=== PATIENT | female | born 2000 | race African-American/Black ===

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

== ENCOUNTER 2018-02-01 01:31 | Emergency (ER) | payer OTHER ==
--- NOTE | 2018-02-01 03:55 | PD ---
HPI Chief Complaint decreased FM, vaginal itching/burning Travel History International Travel<30 Days: No Contact w/Intl Traveler<30Days: No Known Affected Area: No History of Present Illness HPI 17-year-old 001, IUP at 31.3 care complicated by teenage The patient presents complaining of decreased movement over the past several days. She reports the baby is moving but she thinks not quite as much as prior. She also reports vaginal irritation and burning. She reports burning with urination. She denies any leaking of fluid or vaginal bleeding. She reports normal movement after arriving to the OB ED. She denies any painful contractions or cramping. She has no other obstetrical complaints at this time. Weeks Gestation: 31 Para: 1 : 2 History Past Medical History Medical History: Denies Significant Hx Obstetric History Obstetric History 001 1 Past Surgical History Surgical History: No Previous Surgery Family History Family History: Negative Social History Alcohol Use: No Tobacco Use: No Substance Abuse: No Allergies-Medications (Allergen,Severity, Reaction): Coded Allergies: shellfish derived (Verified Allergy, Severe, HIVES, 02/01/18) Home Meds Active Scripts Ibuprofen (Ibuprofen) 800 Mg Tab, 800 MG PO Q8H Y for PAIN SCALE 1 TO 10, #30 TAB 0 Refills Prov:Nataly Sterling 05/22/17 Methocarbamol (Robaxin) 500 Mg Tab, 500 MG PO QID Y for MUSCLE SPASM, #20 TAB 0 Refills Prov:Nataly Sterling 05/22/17 Review of Systems Except as stated in HPI: all other systems reviewed are Neg Physical Exam Narrative GENERAL: Well-nourished, well-developed patient. SKIN: Warm and dry. HEAD: Normocephalic and atraumatic. EYES: No scleral icterus. No injection or drainage. ENT: No nasal drainage noted. Mucous membranes pink. Airway patent. NECK: Supple, trachea midline. No JVD. CARDIOVASCULAR: Regular rate and rhythm without murmurs, gallops, or rubs. RESPIRATORY: deferred BREASTS: Bilateral exam showed no masses , no retractions, no nipple discharge. ABDOMEN/GI: Abdomen soft, non-tender, bowel sounds present, no rebound, no guarding Gravid GENITOURINARY: External Genitalia: intact and normal in appearance. Normal BUS. No cervical or vaginal masses noted. fibronectin obtained which was negative. Physiologic discharge noted. SVE closed/thick/high/posterior FHT's: heart tones are in the 120s with moderate long-term variability, good accelerations, no decelerations noted. Patient has a reactive NST and a category 1 heart rate tracing. EXTREMITIES: No cyanosis or edema. BACK: Nontender without obvious deformity. NEUROLOGICAL/musculoskeletal: Awake and alert. Motor and sensory grossly within normal limits. Grossly normal muscle strength in all muscle groups. Normal speech. Grossly normal range of motion, gait. Psychiatric: Grossly normal memory and affect MDM Plan Assessment/plan: 1. IUP at 31 weeks 2. Decreased movement: The patient reports normal movement after arriving. She has a reactive NST and category 1 heart rate tracing. In addition a biophysical profile was performed which is 8/8. 3. Vaginal irritation: A wet prep was obtained which showed positive yeast. The patient was counseled to use Monistat externally [id number] and given a prescription for Diflucan 150 mg #2 to take 1 now and 1 in 2 weeks 4. well-being: Reassuring testing with reactive NST and BPP 8/ 8. kick counts daily 5. Teenage 6. Lapse in care: Advised patient to see care for women as soon as possible 7. Follow-up with primary OB in the next 2-3 days Diagnosis Diagnosis: Primary Impression: 31 weeks gestation of Additional Impression: Decreased movement affecting management of in third trimester Disposition: 01 DISCHARGE HOME Condition: Karen Baez MD Feb 01, 2018 03:55
--- NOTE | 2018-02-01 04:08 | PD ---
History of Present Illness History of Present Illness NST/BPP report Indications: IUP at 31 weeks, decreased movement heart tones are in the 120s with moderate long-term variability, good accelerations, no decelerations noted. Bedside ultrasound was performed which showed numerous gross body movements, numerous episodes of flexion-extension, breathing motions for greater than 30 seconds, and a normal SHANELLE of 18 Follow-up: Follow-up as clinically indicated Final diagnosis: IUP at 31 weeks, reassuring testing with reactive NST and BPP 06/06 Karen Canela MD Feb 01, 2018 04:08
[2018-02-01 04:47] LABS: BACTERIA, URINE RARE /hpf; BILIRUBIN, URINE NEG (NEG); BLOOD, URINE NEG (NEG); GLUCOSE,URINE NEG (NEG); KETONE, URINE NEG (NEG); MUCUS URINE FEW /lpf (OCC); NITRITE,URINE NEG (NEG); PH, URINE 6.5 (5.0-8.5); SQUAMOUS EPITHELIAL CELL URINE 2 /hpf (0-5); URINE COLOR YELLOW (YELLW/STRAW); URINE LEUKOCYTE ESTERASE MOD (NEG)
== END 2018-02-01 05:29 | disposition home or self-care (01) ==
LOC: HOBED 01:31
DX: O36.8130 Decreased fetal movements, third trimester, not applicable or unspecified (principal); Z3A.31 31 weeks gestation of pregnancy
CPT/HCPCS: 76815; 81001; 82731; 87210

== ENCOUNTER 2018-04-07 21:59 | Inpatient (IN) ==
--- NOTE | 2018-04-07 22:45 | ED ---
History of Present Illness Primary Care Physician: NOT REQUIRED Chief Complaint: ctx History of Present Illness: 17y/o @ 39.4wks. She has PNC with [facility]ur[facility]. She presents this evening with c/o ctx since 8:30pm. No LOF, VB. +FM. Denies edema, G[place]. GBS+. OBHx: 1. , no complications 2. current Weeks Gestation:: 39 Para: 1 : 2 Review of Systems All other systems reviewed negative except as stated in HPI PMFSH - Medical / Surgical Hx Neg / Unobtainable Medical Problems Denied: Yes Surgical History: No Previous Surgery - Tobacco History Smoking Status: Never smoker - Alcohol History How Often Do You Have a Drink Containing Alcohol: Never - Substance Use History Substance History: No History of Abuse - Travel History History of Recent Travel: No Medications and Allergies Active Medications: Active Medications Sodium Chloride (Ns Flush) 2 ml IV.FLUSH PRN PRN PRN Reason: FLUSH AFTER USING IV ACCESS Sodium Chloride (Ns Flush) 2 ml IV.FLUSH BID [place] Allergies Allergy/AdvReac Type Severity Reaction Status Date / Time shellfish derived Allergy Severe HIVES Verified 02/01/18 02:49 Exam Vital signs: Vital Signs 04/07/18 22:14 04/07/18 22:31 Temperature 98.1 F Pulse Rate 83 78 Respiratory Rate 18 Blood Pressure 148/84 H 149/82 H Narrative: General: well developed, well nourished, no acute distress HEENT: normocephalic atraumatic, extraocular movements intact, neck supple Abdomen: soft, gravid, nontender, nondistended Uterus: fundus term Extremities: full range of motion Skin: normal coloration, no rashes, no suspicious skin lesions noted Neurologic: cranial nerves 2-12 grossly intact, normal muscle tone, normal gait Psychiatric: normal mood and affect, appropriate FHTs: 130s, +accels, occasional variable decels, moderate variability, reactive [place]: ctx q7m Cvx: /-2 (11/14/-3 in clinic on Monday) Assessment and Plan - Diagnosis (1) 39 weeks gestation of Code(s): Z3A.39 - 39 weeks gestation of Status: Acute (2) Elevated blood pressure affecting in third trimester, antepartum Code(s): O16.3 - Unspecified maternal hypertension, third trimester Status: Acute (3) Uterine contractions during Code(s): O62.2 - Other uterine inertia Status: Acute (4) Variable heart rate decelerations, antepartum Code(s): O36.8390 - Maternal care for abnormalities of the heart rate or rhythm, unspecified trimester, not applicable or unspecified Status: Acute (5) GBS (group B Streptococcus carrier), +RV culture, currently Code(s): O99.820 - Streptococcus B carrier state complicating Status : Acute - Plan 17y/o @ 39.4wks with ctx, elevated BPs, and GBS+. -- FHTs with occasional variables -- toco with ctx q7m -- cvx /-2, likely latent labor -- elevated BPs x2, will order PIH labs to r/o preE Dispo: with variables and elevated BPs (at minimum gHTN at term) will admit for AOL -- CLD, CEFM/toco -- epidural/gary PRN -- magnesium PRN severe preE features -- pitocin -- PCN for GBS Discharge Plan - Discharge Disposition Patient Disposition: 30 Still Patient - Discharge Condition Condition: Stable - Physicians Team ED Provider: Jose Guadalupe Torres V Primary Care Provider: NOT REQUIRED, - Discharge Instructions Print Language: Japanese
[2018-04-07] MEDS ORDERED: fentaNYL Citrate Inj 100 MCG/2 ML Ampul IV.PUSH PRN (22:50)
[2018-04-07] MEDS ORDERED: Naloxone Inj 0.4 MG/ML Vial IV.PUSH PRN (22:50)
[2018-04-07] MEDS ORDERED: Oxytocin 30 Units/500ml Premix 30 UNITS/500 ML BAG IV.SIG ONE (22:50)
[2018-04-07] MEDS ORDERED: Sodium Chlor 0.9% Inj 500 ML IV.SIG PRN (22:50)
[2018-04-07] MEDS ORDERED: Sod Chloride 0.9% Inj 1,000 ML IV.CONT PRN (22:50)
[2018-04-07] MEDS ORDERED: Oxytocin 30 Units/500ml Premix 30 UNITS/500 ML BAG IV.SIG PRN (22:51)
[2018-04-07] MEDS ORDERED: Penicillin G Potassium Inj 5,000,000 UNIT in Sodium Chloride 0.9% Inj 100 ML IV.SIG ONE (22:52)
[2018-04-07] MEDS ORDERED: Citric Acid/Sodium Citrate Liq 30 ML UDC PO SCH (23:00)
[2018-04-07 23:22] LABS: Baso % (Auto) 0.1 % (0.0-2.0); Eos # (Auto) 0.1 th/mm3 (0.0-0.4); Eos % (Auto) 1.3 % (0.0-4.0); Hematocrit 30.3 % (35.0-46.0); Hemoglobin 9.9 gm/dL (11.6-15.3); Lymph # (Auto) 1.7 th/mm3 (1.0-4.8); Lymph % (Auto) 26.4 % (9.0-44.0); Mean Corpuscular HGB Conc 32.8 % (32.0-36.0); Mean Corpuscular Hemoglobin 28.1 pg (27.0-34.0); Mean Corpuscular Volume 85.8 fL (80.0-100.0); Mean Platelet Volume 7.4 fL (7.0-11.0); Mono # (Auto) 0.6 th/mm3 (0.0-0.9); Mono % (Auto) 9.6 % (0.0-8.0); Neut # (Auto) 3.9 th/mm3 (1.8-7.7); Neut % (Auto) 62.6 % (16.0-70.0); Platelet Count 328 th/mm3 (150-450); Red Blood Count 3.53 mil/mm3 (4.00-5.30); White Blood Count 6.3 th/mm3 (4.0-11.0)
[2018-04-07 23:42] LABS: Alanine Aminotransferase 13 U/L (9-42); Albumin 2.7 g/dL (3.4-5.0); Anion Gap 9 meq/L (5-15); Aspartate Aminotransferase 15 U/L (16-38); Blood Urea Nitrogen 7 mg/dL (7-18); Calcium 8.3 mg/dL (8.5-10.1); Carbon Dioxide 24.1 meq/L (21.0-32.0); Chloride 108 meq/L (98-107); Glomerular Filtration Rate Greater Than 89 mL/min (>89); Glucose,Random 91 mg/dL (74-106); Potassium 3.5 meq/L (3.5-5.1); Sodium 141 meq/L (136-145)
[2018-04-07 23:44] LABS: Alkaline Phosphatase 154 U/L (45-117); Total Protein 6.7 g/dL (6.4-8.2)
[2018-04-08] MEDS: Acetaminophen 325 MG Tablet PO PRN ×2 (02:19→20:54)
[2018-04-08 02:20] LABS: Protein/Creatinine Ratio,Urine 0.14 (0.00-0.14)
[2018-04-08 03:18] LABS: Amphetamine Urine With Conf Neg (Neg); Benzodiazepine Urine With Conf Neg (Neg); Bilirubin,Urine Negative (Negative); Clarity,Urine Hazy (Clear); Color,Urine Yellow (Yellw/Straw); Glucose,Urine (UA) Negative (Negative); Leukocyte Esterase,Urine Trace (Negative); Mucus,Urine Few /lpf (Occasional); Nitrite,Urine Negative (Negative); Specific Gravity,Urine 1.029 (1.002-1.035); Squamous Epithelial Cell,Urine 2 /hpf (0-5); Urobilinogen,Urine 4 or Greater mg/dL (Less than 2)
[2018-04-08] MEDS ORDERED: Penicillin G Potassium Inj 2,500,000 UNIT in Sodium Chlor 0.9% Inj 100 ML IV.SIG SCH (05:00)
[2018-04-08] MEDS: fentaNYL Citrate Inj 100 MCG/2 ML Ampul IV.PUSH PRN ×2 (08:09→10:47)
[2018-04-08] MEDS ORDERED: Zolpidem Tartrate 5 MG Tablet PO PRN (09:06)
[2018-04-08] MEDS ORDERED: Witch Hazel 50%/Glyderin 12.5% 40 Pad Jar RECTAL PRN (09:06)
[2018-04-08] MEDS ORDERED: Benzocaine 20% Top Spray 60 ML Can TOPICAL PRN (09:06)
[2018-04-08] MEDS ORDERED: Bisacodyl 10 MG Supp RECTAL PRN (09:06)
--- NOTE | 2018-04-08 09:06 | P.OBDELI ---
Weeks Gestation: 39 Patient Started Active Labor: Yes Medical Induction of Labor: Yes Artificial Rupture of Membrane: No Anesthesia: None Episiotomy: none Vaginal Delivery: Spontaneous Presentation: Occiput anterior Nuchal Cord: None Delayed Cord Clamping (45 sec): Yes Placenta: Spontaneous delivery, Intact, 3 vessel cord Laceration: 1 deg Repair: Vicryl interrupted Estimated blood loss (mL): 50 Infant: Male Infant Delivery Date: 04/08/18 Infant Delivery Time: 08:54 score (1 min): 9 score (5 min): 9
[2018-04-08] MEDS ORDERED: Oxytocin 30 Units/500ml Premix 30 UNITS/500 ML BAG IV.CONT SCH (09:15)
[2018-04-08] MEDS ORDERED: miSOPROStol 200 MCG Tablet ONE (10:37)
[2018-04-08] MEDS ORDERED: fentaNYL Citrate Inj 100 MCG/2 ML Ampul ONE (10:45)
[2018-04-08] MEDS ORDERED: miSOPROStol 200 MCG Tablet VAGINAL ONE (11:00)
[2018-04-08] MEDS ORDERED: Tranexamic Acid Inj 1,000 MG/10 ML Ampul ONE (11:03)
[2018-04-08] MEDS ORDERED: Tranexamic Acid Inj 1,000 MG in Sodium Chlor 0.9% Inj 100 ML IV.SIG ONE (12:00)
--- NOTE | 2018-04-08 12:02 | P.PN ---
Subjective Interval history: 17y/o P2 s/p earlier this morning. Per report, patient continued to bleed since delivery so presented to room after notified by nurse about the continued bleeding. The patient was consented for manual examination. She received fentanyl 100 mcg IV 1. Bimanual examination revealed some clots that were swept from the lower uterine cysts segment with a cervix approximately 3 cm dilated. Approximately 250 cc was noted between my examination and with the nurse was able to express from a fundal examination. The patient received 1000 mcg of Cytotec rectally and thousand milligrams of tranexamic acid intravenously. The patient tolerated the procedure well. The nurses reported back that the patient has scant bleeding at this time. Her fundus remained firm and she is stable overall. We will continue to monitor closely. Physical Exam Vital signs: Vital Signs 04/07/18 22:14 04/07/18 22:31 04/07/18 22:54 Temperature 98.1 F Pulse Rate 83 78 91 H Respiratory Rate 18 Blood Pressure 148/84 H 149/82 H 134/73 04/08/18 00:41 04/08/18 00:45 04/08/18 03:22 Temperature 98.1 F Pulse Rate 76 82 Respiratory Rate 18 18 Blood Pressure 135/64 141/55 H 04/08/18 04:34 04/08/18 04:45 04/08/18 05:29 Temperature Pulse Rate 83 65 Respiratory Rate 16 Blood Pressure 142/89 H 130/70 04/08/18 05:30 04/08/18 05:58 04/08/18 06:00 Temperature Pulse Rate 78 Respiratory Rate 16 18 Blood Pressure 122/76 04/08/18 06:29 04/08/18 06:37 04/08/18 06:45 Temperature Pulse Rate 64 Respiratory Rate 16 16 Blood Pressure 131/60 04/08/18 08:20 04/08/18 09:15 04/08/18 09:18 Temperature Pulse Rate 69 92 H 83 Respiratory Rate 20 18 17 Blood Pressure 121/86 150/87 H 107/86 04/08/18 09:30 04/08/18 09:41 04/08/18 09:46 Temperature 97.8 F Pulse Rate 70 61 60 Respiratory Rate Blood Pressure 129/103 H 148/82 H 156/77 H 04/08/18 10:15 04/08/18 10:46 04/08/18 10:48 Temperature Pulse Rate 62 74 Respiratory Rate 18 18 Blood Pressure 155/88 H 102/67 04/08/18 11:01 04/08/18 11:04 04/08/18 11:15 Temperature 98.2 F Pulse Rate 81 74 Respiratory Rate 18 Blood Pressure 152/86 H 04/08/18 11:16 04/08/18 11:31 Temperature Pulse Rate 80 Respiratory Rate Blood Pressure 120/102 H 140/74 Intake & Output 04/07/18 04/08/18 04/08/18 18:59 06:59 18:59 Intake Total 1000 / 1000 Balance 1000 / 1000 Weight 88.904 kg Intake: IV 1000 / 1000 LR 1000 mL Inj 1,000 ML @ 125 1000 / 1000 mls/hr IV.CONT .Q8H [facility] Rx#: [id number] Results - Labs CBC & Chem 7: 04/07/18 22:44 04/07/18 22:44 Laboratory Results - last 24 hr 04/07/18 04/07/18 04/07/18 22:44 22:44 22:44 WBC Cancelled 6.3 Corrected WBC Cancelled RBC Cancelled 3.53 L Hgb Cancelled 9.9 L Hct Cancelled 30.3 L MCV Cancelled 85.8 MCH Cancelled 28.1 MCHC Cancelled 32.8 RDW Cancelled 15.0 Plt Count Cancelled 328 MPV Cancelled 7.4 Neut % (Auto) 62.6 Lymph % (Auto) 26.4 [place] % (Auto) 9.6 H Eos % (Auto) 1.3 Baso % (Auto) 0.1 Neut # (Auto) 3.9 Lymph # (Auto) 1.7 [place] # (Auto) 0.6 Eos # (Auto) 0.1 Baso # (Auto) 0.0 WBC Differential . Differential Comment Auto diff final Hematology Comments Cancelled Sodium 141 Potassium 3.5 Chloride 108 H Carbon Dioxide 24.1 Anion Gap 9 BUN 7 Creatinine 0.68 Estimated GFR Greater than 89 Random Glucose 91 Calcium 8.3 L Total Bilirubin 0.2 AST 15 L ALT 13 Alkaline Phosphatase 154 H Total Protein 6.7 Albumin 2.7 L Urine Color Urine Clarity Urine pH Ur Specific [place] Urine Protein Urine Glucose (UA) Urine Ketones Urine Occult Blood Urine Nitrate Urine Bilirubin Urine Urobilinogen Ur Leukocyte Esterase Urine RBC Urine WBC Ur Squamous Epith Cells Urine Mucus Micro UA Comment Urine Culture Comments Ur Random Creatinine U Random Total Protein Protein/Creatinin Ratio Urine Opiates Screen Ur Barbiturates Screen Ur Amphetamine Screen U Benzodiazepines Scrn Urine Cocaine Screen U Cannabinoids Screen Blood Type 04/07/18 04/08/18 04/08/18 22:44 00:05 00:05 WBC Corrected WBC RBC Hgb Hct MCV MCH MCHC RDW Plt Count MPV Neut % (Auto) Lymph % (Auto) [place] % (Auto) Eos % (Auto) Baso % (Auto) Neut # (Auto) Lymph # (Auto) [place] # (Auto) Eos # (Auto) Baso # (Auto) WBC Differential Differential Comment Hematology Comments Sodium Potassium Chloride Carbon Dioxide Anion Gap BUN Creatinine Estimated GFR Random Glucose Calcium Total Bilirubin AST ALT Alkaline Phosphatase Total Protein Albumin Urine Color Urine Clarity Urine pH Ur Specific [place] Urine Protein Urine Glucose (UA) Urine Ketones Urine Occult Blood Urine Nitrate Urine Bilirubin Urine Urobilinogen Ur Leukocyte Esterase Urine RBC Urine WBC Ur Squamous Epith Cells Urine Mucus Micro UA Comment Urine Culture Comments Ur Random Creatinine 292 U Random Total Protein 42.0 H Protein/Creatinin Ratio 0.14 Urine Opiates Screen Neg Ur Barbiturates Screen Neg Ur Amphetamine Screen Neg U Benzodiazepines Scrn Neg Urine Cocaine Screen Neg U Cannabinoids Screen Pos H Blood Type A Positive 04/08/18 00:05 WBC Corrected WBC RBC Hgb Hct MCV MCH MCHC RDW Plt Count MPV Neut % (Auto) Lymph % (Auto) [place] % (Auto) Eos % (Auto) Baso % (Auto) Neut # (Auto) Lymph # (Auto) [place] # (Auto) Eos # (Auto) Baso # (Auto) WBC Differential Differential Comment Hematology Comments Sodium Potassium Chloride Carbon Dioxide Anion Gap BUN Creatinine Estimated GFR Random Glucose Calcium Total Bilirubin AST ALT Alkaline Phosphatase Total Protein Albumin Urine Color Yellow Urine Clarity Hazy H Urine pH 6.0 Ur Specific [place] 1.029 Urine Protein 30 H Urine Glucose (UA) Negative Urine Ketones 20 Urine Occult Blood Negative Urine Nitrate Negative Urine Bilirubin Negative Urine Urobilinogen 4 or greater Ur Leukocyte Esterase Trace H Urine RBC 2 Urine WBC 4 Ur Squamous Epith Cells 2 Urine Mucus Few H Micro UA Comment Culture not ind Urine Culture Comments Culture not ind Ur Random Creatinine U Random Total Protein Protein/Creatinin Ratio Urine Opiates Screen Ur Barbiturates Screen Ur Amphetamine Screen U Benzodiazepines Scrn Urine Cocaine Screen U Cannabinoids Screen Blood Type Assessment and Plan - Assessment (1) 39 weeks gestation of Code(s): Z3A.39 - 39 weeks gestation of Status: Acute (2) Elevated blood pressure affecting in third trimester, antepartum Code(s): O16.3 - Unspecified maternal hypertension, third trimester Status: Acute (3) Uterine contractions during Code(s): O62.2 - Other uterine inertia Status: Acute (4) Variable heart rate decelerations, antepartum Code(s): O36.8390 - Maternal care for abnormalities of the heart rate or rhythm, unspecified trimester, not applicable or unspecified Status: Acute (5) GBS (group B Streptococcus carrier), +RV culture, currently Code(s): O99.820 - Streptococcus B carrier state complicating Status : Acute
[2018-04-08] MEDS ORDERED: Carboprost Tromethamine Inj 250 MCG/ML Ampul IM ONE (13:46)
[2018-04-08] MEDS ORDERED: Carboprost Tromethamine Inj 250 MCG/ML Ampul IM PRN (13:52)
--- NOTE | 2018-04-08 13:52 | P.PN ---
Subjective Interval history: Came to reassess patient. After patient had been reclining in bed, she had an episode of bleeding a pad in a short amount of time, she was assisted to the bathroom by the RN and a small clot was noted in the toilet. She reports the bleeding improved after the patient emptied her bladder. At the time of my assessment, a small amount blood was expressed by fundal massage with bleeding appearing to stop. Will rx additional uterotonics, place gary catheter, check CBC, and monitor closely. Discussed with patient possible etiologies for the bleeding. All of the patient's questions were answered. Physical Exam Vital signs: Vital Signs 04/07/18 22:14 04/07/18 22:31 04/07/18 22:54 Temperature 98.1 F Pulse Rate 83 78 91 H Respiratory Rate 18 Blood Pressure 148/84 H 149/82 H 134/73 04/08/18 00:41 04/08/18 00:45 04/08/18 03:22 Temperature 98.1 F Pulse Rate 76 82 Respiratory Rate 18 18 Blood Pressure 135/64 141/55 H 04/08/18 04:34 04/08/18 04:45 04/08/18 05:29 Temperature Pulse Rate 83 65 Respiratory Rate 16 Blood Pressure 142/89 H 130/70 04/08/18 05:30 04/08/18 05:58 04/08/18 06:00 Temperature Pulse Rate 78 Respiratory Rate 16 18 Blood Pressure 122/76 04/08/18 06:29 04/08/18 06:37 04/08/18 06:45 Temperature Pulse Rate 64 Respiratory Rate 16 16 Blood Pressure 131/60 04/08/18 08:20 04/08/18 09:15 04/08/18 09:18 Temperature Pulse Rate 69 92 H 83 Respiratory Rate 20 18 17 Blood Pressure 121/86 150/87 H 107/86 04/08/18 09:30 04/08/18 09:41 04/08/18 09:46 Temperature 97.8 F Pulse Rate 70 61 60 Respiratory Rate Blood Pressure 129/103 H 148/82 H 156/77 H 04/08/18 10:15 04/08/18 10:46 04/08/18 10:48 Temperature Pulse Rate 62 74 Respiratory Rate 18 18 Blood Pressure 155/88 H 102/67 04/08/18 11:01 04/08/18 11:04 04/08/18 11:15 Temperature 98.2 F Pulse Rate 81 74 Respiratory Rate 18 Blood Pressure 152/86 H 04/08/18 11:16 04/08/18 11:31 Temperature Pulse Rate 80 Respiratory Rate Blood Pressure 120/102 H 140/74 Intake & Output 04/07/18 04/08/18 04/08/18 18:59 06:59 18:59 Intake Total 1000 / 1000 Balance 1000 / 1000 Weight 88.904 kg Intake: IV 1000 / 1000 LR 1000 mL Inj 1,000 ML @ 125 1000 / 1000 mls/hr IV.CONT .Q8H [facility] Rx#: [id number] Results - Labs CBC & Chem 7: 04/07/18 22:44 04/07/18 22:44 Laboratory Results - last 24 hr 04/07/18 04/07/18 04/07/18 22:44 22:44 22:44 WBC Cancelled 6.3 Corrected WBC Cancelled RBC Cancelled 3.53 L Hgb Cancelled 9.9 L Hct Cancelled 30.3 L MCV Cancelled 85.8 MCH Cancelled 28.1 MCHC Cancelled 32.8 RDW Cancelled 15.0 Plt Count Cancelled 328 MPV Cancelled 7.4 Neut % (Auto) 62.6 Lymph % (Auto) 26.4 [place] % (Auto) 9.6 H Eos % (Auto) 1.3 Baso % (Auto) 0.1 Neut # (Auto) 3.9 Lymph # (Auto) 1.7 [place] # (Auto) 0.6 Eos # (Auto) 0.1 Baso # (Auto) 0.0 WBC Differential . Differential Comment Auto diff final Hematology Comments Cancelled Sodium 141 Potassium 3.5 Chloride 108 H Carbon Dioxide 24.1 Anion Gap 9 BUN 7 Creatinine 0.68 Estimated GFR Greater than 89 Random Glucose 91 Calcium 8.3 L Total Bilirubin 0.2 AST 15 L ALT 13 Alkaline Phosphatase 154 H Total Protein 6.7 Albumin 2.7 L Urine Color Urine Clarity Urine pH Ur Specific [place] Urine Protein Urine Glucose (UA) Urine Ketones Urine Occult Blood Urine Nitrate Urine Bilirubin Urine Urobilinogen Ur Leukocyte Esterase Urine RBC Urine WBC Ur Squamous Epith Cells Urine Mucus Micro UA Comment Urine Culture Comments Ur Random Creatinine U Random Total Protein Protein/Creatinin Ratio Urine Opiates Screen Ur Barbiturates Screen Ur Amphetamine Screen U Benzodiazepines Scrn Urine Cocaine Screen U Cannabinoids Screen Blood Type 08/11/18 08/12/18 08/12/18 22:44 00:05 00:05 WBC Corrected WBC RBC Hgb Hct MCV MCH MCHC RDW Plt Count MPV Neut % (Auto) Lymph % (Auto) [place] % (Auto) Eos % (Auto) Baso % (Auto) Neut # (Auto) Lymph # (Auto) [place] # (Auto) Eos # (Auto) Baso # (Auto) WBC Differential Differential Comment Hematology Comments Sodium Potassium Chloride Carbon Dioxide Anion Gap BUN Creatinine Estimated GFR Random Glucose Calcium Total Bilirubin AST ALT Alkaline Phosphatase Total Protein Albumin Urine Color Urine Clarity Urine pH Ur Specific [place] Urine Protein Urine Glucose (UA) Urine Ketones Urine Occult Blood Urine Nitrate Urine Bilirubin Urine Urobilinogen Ur Leukocyte Esterase Urine RBC Urine WBC Ur Squamous Epith Cells Urine Mucus Micro UA Comment Urine Culture Comments Ur Random Creatinine 292 U Random Total Protein 42.0 H Protein/Creatinin Ratio 0.14 Urine Opiates Screen Neg Ur Barbiturates Screen Neg Ur Amphetamine Screen Neg U Benzodiazepines Scrn Neg Urine Cocaine Screen Neg U Cannabinoids Screen Pos H Blood Type A Positive 04/08/18 00:05 WBC Corrected WBC RBC Hgb Hct MCV MCH MCHC RDW Plt Count MPV Neut % (Auto) Lymph % (Auto) [place] % (Auto) Eos % (Auto) Baso % (Auto) Neut # (Auto) Lymph # (Auto) [place] # (Auto) Eos # (Auto) Baso # (Auto) WBC Differential Differential Comment Hematology Comments Sodium Potassium Chloride Carbon Dioxide Anion Gap BUN Creatinine Estimated GFR Random Glucose Calcium Total Bilirubin AST ALT Alkaline Phosphatase Total Protein Albumin Urine Color Yellow Urine Clarity Hazy H Urine pH 6.0 Ur Specific [place] 1.029 Urine Protein 30 H Urine Glucose (UA) Negative Urine Ketones 20 Urine Occult Blood Negative Urine Nitrate Negative Urine Bilirubin Negative Urine Urobilinogen 4 or greater Ur Leukocyte Esterase Trace H Urine RBC 2 Urine WBC 4 Ur Squamous Epith Cells 2 Urine Mucus Few H Micro UA Comment Culture not ind Urine Culture Comments Culture not ind Ur Random Creatinine U Random Total Protein Protein/Creatinin Ratio Urine Opiates Screen Ur Barbiturates Screen Ur Amphetamine Screen U Benzodiazepines Scrn Urine Cocaine Screen U Cannabinoids Screen Blood Type Assessment and Plan - Assessment (1) 39 weeks gestation of Code(s): Z3A.39 - 39 weeks gestation of Status: Acute (2) Elevated blood pressure affecting in third trimester, antepartum Code(s): O16.3 - Unspecified maternal hypertension, third trimester Status: Acute (3) Uterine contractions during Code(s): O62.2 - Other uterine inertia Status: Acute (4) Variable heart rate decelerations, antepartum Code(s): O36.8390 - Maternal care for abnormalities of the heart rate or rhythm, unspecified trimester, not applicable or unspecified Status: Acute (5) GBS (group B Streptococcus carrier), +RV culture, currently Code(s): O99.820 - Streptococcus B carrier state complicating Status : Acute
[2018-04-08] MEDS ORDERED: miSOPROStol 200 MCG Tablet PO ONE (14:00)
[2018-04-08 14:15] LABS: Hematocrit 28.5 % (35.0-46.0); Hemoglobin 9.6 gm/dL (11.6-15.3); Mean Corpuscular HGB Conc 33.6 % (32.0-36.0); Mean Corpuscular Hemoglobin 28.3 pg (27.0-34.0); Mean Corpuscular Volume 84.2 fL (80.0-100.0); Mean Platelet Volume 7.3 fL (7.0-11.0); Platelet Count 310 th/mm3 (150-450); Red Blood Count 3.38 mil/mm3 (4.00-5.30); Red Cell Distribution Width 14.8 % (11.6-17.2); White Blood Count 10.8 th/mm3 (4.0-11.0)
[2018-04-08] MEDS ORDERED: Measles/Mumps/Rubella Vaccine Inj 0.5 ML Vial SQ ONE (16:00)
[2018-04-08] MEDS ORDERED: Diphtheria/Tetanus/Pertussis Vaccine Inj 0.5 ML Syringe IM ONE (16:00)
--- NOTE | 2018-04-08 18:56 | P.PN ---
Subjective Interval history: Came to reassess patient, light bleeding at this time. Patient reports diarrhea after the hemabate and some vomiting, but the vomiting has resolved. Discussed causes of PPH with the patient and her mother at length, discussed improvement of bleeding at this time, so will continue close observation. Hgb 9.9 to 9.6, expect a drop in morning Hgb with normalization. Patient and her mother both thanked me for my care. Physical Exam Vital signs: Vital Signs 04/07/18 22:14 04/07/18 22:31 04/07/18 22:54 Temperature 98.1 F Pulse Rate 83 78 91 H Respiratory Rate 18 Blood Pressure 148/84 H 149/82 H 134/73 04/08/18 00:41 04/08/18 00:45 04/08/18 03:22 Temperature 98.1 F Pulse Rate 76 82 Respiratory Rate 18 18 Blood Pressure 135/64 141/55 H 04/08/18 04:34 04/08/18 04:45 04/08/18 05:29 Temperature Pulse Rate 83 65 Respiratory Rate 16 Blood Pressure 142/89 H 130/70 04/08/18 05:30 04/08/18 05:58 04/08/18 06:00 Temperature Pulse Rate 78 Respiratory Rate 16 18 Blood Pressure 122/76 04/08/18 06:29 04/08/18 06:37 04/08/18 06:45 Temperature Pulse Rate 64 Respiratory Rate 16 16 Blood Pressure 131/60 04/08/18 08:20 04/08/18 09:15 04/08/18 09:18 Temperature Pulse Rate 69 92 H 83 Respiratory Rate 20 18 17 Blood Pressure 121/86 150/87 H 107/86 04/08/18 09:30 04/08/18 09:41 04/08/18 09:46 Temperature 97.8 F Pulse Rate 70 61 60 Respiratory Rate Blood Pressure 129/103 H 148/82 H 156/77 H 04/08/18 10:15 04/08/18 10:46 04/08/18 10:48 Temperature Pulse Rate 62 74 Respiratory Rate 18 18 Blood Pressure 155/88 H 102/67 04/08/18 11:01 04/08/18 11:04 04/08/18 11:15 Temperature 98.2 F Pulse Rate 81 74 Respiratory Rate 18 Blood Pressure 152/86 H 04/08/18 11:16 04/08/18 11:31 04/08/18 17:20 Temperature 99.9 F H Pulse Rate 80 77 Respiratory Rate 14 Blood Pressure 120/102 H 140/74 142/87 H Intake & Output 04/07/18 04/08/18 04/08/18 18:59 06:59 18:59 Intake Total 1000 / 1000 Balance 1000 / 1000 Weight 88.904 kg Intake: IV 1000 / 1000 LR 1000 mL Inj 1,000 ML @ 125 1000 / 1000 mls/hr IV.CONT .Q8H [facility] Rx#: [id number] Results - Labs CBC & Chem 7: 04/08/18 13:40 04/07/18 22:44 Laboratory Results - last 24 hr 04/07/18 04/07/18 04/07/18 22:44 22:44 22:44 WBC Cancelled 6.3 Corrected WBC Cancelled RBC Cancelled 3.53 L Hgb Cancelled 9.9 L Hct Cancelled 30.3 L MCV Cancelled 85.8 MCH Cancelled 28.1 MCHC Cancelled 32.8 RDW Cancelled 15.0 Plt Count Cancelled 328 MPV Cancelled 7.4 Neut % (Auto) 62.6 Lymph % (Auto) 26.4 [place] % (Auto) 9.6 H Eos % (Auto) 1.3 Baso % (Auto) 0.1 Neut # (Auto) 3.9 Lymph # (Auto) 1.7 [place] # (Auto) 0.6 Eos # (Auto) 0.1 Baso # (Auto) 0.0 WBC Differential . Differential Comment Auto diff final Hematology Comments Cancelled Sodium 141 Potassium 3.5 Chloride 108 H Carbon Dioxide 24.1 Anion Gap 9 BUN 7 Creatinine 0.68 Estimated GFR Greater than 89 Random Glucose 91 Calcium 8.3 L Total Bilirubin 0.2 AST 15 L ALT 13 Alkaline Phosphatase 154 H Total Protein 6.7 Albumin 2.7 L Urine Color Urine Clarity Urine pH Ur Specific [place] Urine Protein Urine Glucose (UA) Urine Ketones Urine Occult Blood Urine Nitrate Urine Bilirubin Urine Urobilinogen Ur Leukocyte Esterase Urine RBC Urine WBC Ur Squamous Epith Cells Urine Mucus Micro UA Comment Urine Culture Comments Ur Random Creatinine U Random Total Protein Protein/Creatinin Ratio Urine Opiates Screen Ur Barbiturates Screen Ur Amphetamine Screen U Benzodiazepines Scrn Urine Cocaine Screen U Cannabinoids Screen Blood Type 04/07/18 04/08/18 04/08/18 22:44 00:05 00:05 WBC Corrected WBC RBC Hgb Hct MCV MCH MCHC RDW Plt Count MPV Neut % (Auto) Lymph % (Auto) [place] % (Auto) Eos % (Auto) Baso % (Auto) Neut # (Auto) Lymph # (Auto) [place] # (Auto) Eos # (Auto) Baso # (Auto) WBC Differential Differential Comment Hematology Comments Sodium Potassium Chloride Carbon Dioxide Anion Gap BUN Creatinine Estimated GFR Random Glucose Calcium Total Bilirubin AST ALT Alkaline Phosphatase Total Protein Albumin Urine Color Urine Clarity Urine pH Ur Specific [place] Urine Protein Urine Glucose (UA) Urine Ketones Urine Occult Blood Urine Nitrate Urine Bilirubin Urine Urobilinogen Ur Leukocyte Esterase Urine RBC Urine WBC Ur Squamous Epith Cells Urine Mucus Micro UA Comment Urine Culture Comments Ur Random Creatinine 292 U Random Total Protein 42.0 H Protein/Creatinin Ratio 0.14 Urine Opiates Screen Neg Ur Barbiturates Screen Neg Ur Amphetamine Screen Neg U Benzodiazepines Scrn Neg Urine Cocaine Screen Neg U Cannabinoids Screen Pos H Blood Type A Positive 04/08/18 04/08/18 00:05 13:40 WBC 10.8 D Corrected WBC RBC 3.38 L Hgb 9.6 L Hct 28.5 L MCV 84.2 MCH 28.3 MCHC 33.6 RDW 14.8 Plt Count 310 MPV 7.3 Neut % (Auto) Lymph % (Auto) [place] % (Auto) Eos % (Auto) Baso % (Auto) Neut # (Auto) Lymph # (Auto) [place] # (Auto) Eos # (Auto) Baso # (Auto) WBC Differential Differential Comment Hematology Comments Sodium Potassium Chloride Carbon Dioxide Anion Gap BUN Creatinine Estimated GFR Random Glucose Calcium Total Bilirubin AST ALT Alkaline Phosphatase Total Protein Albumin Urine Color Yellow Urine Clarity Hazy H Urine pH 6.0 Ur Specific [place] 1.029 Urine Protein 30 H Urine Glucose (UA) Negative Urine Ketones 20 Urine Occult Blood Negative Urine Nitrate Negative Urine Bilirubin Negative Urine Urobilinogen 4 or greater Ur Leukocyte Esterase Trace H Urine RBC 2 Urine WBC 4 Ur Squamous Epith Cells 2 Urine Mucus Few H Micro UA Comment Culture not ind Urine Culture Comments Culture not ind Ur Random Creatinine U Random Total Protein Protein/Creatinin Ratio Urine Opiates Screen Ur Barbiturates Screen Ur Amphetamine Screen U Benzodiazepines Scrn Urine Cocaine Screen U Cannabinoids Screen Blood Type Assessment and Plan - Assessment (1) 39 weeks gestation of Code(s): Z3A.39 - 39 weeks gestation of Status: Acute (2) Elevated blood pressure affecting in third trimester, antepartum Code(s): O16.3 - Unspecified maternal hypertension, third trimester Status: Acute (3) Uterine contractions during Code(s): O62.2 - Other uterine inertia Status: Acute (4) Variable heart rate decelerations, antepartum Code(s): O36.8390 - Maternal care for abnormalities of the heart rate or rhythm, unspecified trimester, not applicable or unspecified Status: Acute (5) GBS (group B Streptococcus carrier), +RV culture, currently Code(s): O99.820 - Streptococcus B carrier state complicating Status : Acute
[2018-04-08] MEDS ORDERED: Oxytocin 30 Units/500ml Premix 30 UNITS/500 ML BAG IV.SIG ONE (21:00)
[2018-04-09] MEDS: Senna/Docusate Sodium 8.6/50 MG Tablet PO SCH ×3 (06:23→21:49)
--- NOTE | 2018-04-09 09:50 | P.PNOB ---
Subjective Interval history: day #1 AFVSS overnight. Decreased lochia. Denies dysuria. No breast tenderness. Appetite good. No nausea or vomiting. Positive flatus/bowel movement. Ambulating well. Denies calf pain or shortness of breath. Otherwise, she is doing well this morning and has no other complaints. Objective Vital Signs/I&O: Vital Signs 04/08/18 09:46 04/08/18 10:15 04/08/18 10:46 Temperature Pulse Rate 60 62 74 Respiratory Rate 18 Blood Pressure 156/77 H 155/88 H 102/67 04/08/18 10:48 04/08/18 11:01 04/08/18 11:04 Temperature 98.2 F Pulse Rate 81 Respiratory Rate 18 Blood Pressure 152/86 H 04/08/18 11:15 04/08/18 11:16 04/08/18 11:31 Temperature Pulse Rate 74 80 Respiratory Rate 18 Blood Pressure 120/102 H 140/74 04/08/18 17:20 04/08/18 19:30 04/09/18 08:00 Temperature 99.9 F H 98.8 F 98.0 F Pulse Rate 77 76 72 Respiratory Rate 14 16 18 Blood Pressure 142/87 H 156/73 H 142/70 H Intake & Output 04/08/18 04/09/18 04/09/18 18:59 06:59 18:59 Intake Total 1000 / 1000 Balance 1000 / 1000 Intake: IV 1000 / 1000 LR 1000 mL Inj 1,000 ML @ 125 1000 / 1000 mls/hr IV.CONT .Q8H [facility] Rx#: [id number] Result Diagrams: 04/09/18 10:00 04/07/18 22:44 Objective Remarks: GENERAL: Well-nourished, well-developed patient. CARDIOVASCULAR: Regular rate and rhythm without murmurs, gallops, or rubs. RESPIRATORY: Breath sounds equal bilaterally. No accessory muscle use. ABDOMEN/GI: Abdomen soft, non-tender. Fundus: Firm, non-tender at umbilicus. GENITOURINARY: Light to moderate bleeding. EXTREMITIES: No cyanosis or edema, non-tender, without signs of DVT. Medications and IVs: Active Medications Acetaminophen (Tylenol) 650 mg PO Q4H PRN PRN Reason: HEADACHE Last Admin: 04/08/18 20:54 Dose: 650 mg Al Hydroxide/Mg Hydroxide (Milk Of Magnesia Liq) 30 ml PO Q12H PRN PRN Reason: Mild Constipation Benzocaine (Americaine 20% Top [place]) 1 spray TOPICAL Q4H PRN PRN Reason: For Perineum Discomfort Last Admin: 04/09/18 08:52 Dose: 1 spray Bisacodyl (Dulcolax Supp) 10 mg RECTAL DAILY PRN PRN Reason: SEVERE CONSITIPATION Carboprost Tromethamine (Hemabate Inj) 250 mcg IM ONCE PRN PRN Reason: BLEEDING Citric Acid/Sodium Citrate (Sodium Citrate/Citric Acid Liq) 30 ml PO [employer] [facility] Stop: 04/11/18 22:59 Ibuprofen (Motrin) 800 mg PO Q8H PRN PRN Reason: For cramping Lactulose (Lactulose Liq) 30 ml PO DAILY PRN PRN Reason: SEVERE CONSITIPATION Lidocaine HCl (Xylocaine 1% Inj) 0.1 ml I-DERMAL PRN PRN PRN Reason: For IV start Stop: 04/10/18 22:49 Mineral Oil (Muri-Lube Oil) 10 ml TOPICAL PRN PRN PRN Reason: PRN perineal massage Naloxone HCl (Narcan Inj) 0.1 mg IV.PUSH Q2M PRN PRN Reason: for opiate reversal Ondansetron HCl (Zofran Odt) 4 mg PO Q6H PRN PRN Reason: NAUSEA OR VOMITING Ondansetron HCl (Zofran Inj) 4 mg IV.PUSH Q6H PRN PRN Reason: VOMITTING/NAUSEA Last Admin: 04/08/18 20:53 Dose: 4 mg Oxycodone/Acetaminophen (Percocet 5/325 Mg) 1 tab PO Q4H PRN PRN Reason: PAIN SCALE 4 TO 6 MODERATE Oxycodone/Acetaminophen (Percocet 5/325 Mg) 2 tab PO Q4H PRN PRN Reason: PAIN SCALE 6 TO 10 Senna/Docusate Sodium (Sue-Colace) 1 tab PO BID [facility] Last Admin: 04/09/18 06:23 Dose: Not Given Sennosides (Senokot) 17.2 mg PO Q12H PRN PRN Reason: Moderate Constipation Sodium Chloride (Ns Flush) 2 ml IV.FLUSH BID [facility] Last Admin: 04/09/18 08:53 Dose: 2 ml Sodium Chloride (Ns Flush) 2 ml IV.FLUSH UNSCH PRN PRN Reason: FLUSH AFTER USING IV ACCESS [place]/Glycerin (Tucks Pads) 1 applicatio RECTAL QID PRN PRN Reason: HEMORRHOIDS Last Admin: 04/08/18 20:53 Dose: 1 applicatio Zolpidem Tartrate (Ambien) 5 mg PO HS PRN PRN Reason: SLEEP Assessment and Plan - Plan 17y/o female who is PPD#1 s/p . S/P hemorrhage. s/p Hemabate, TXA , cytotec -Bleeding has significantly improved -Follow up H/H today -Continue routine care. -Percocet and Motrin PRN pain. -Encouraged OOB. Advised pelvic rest for 6 wks. -Re: ctrl, she would like a Nexplanon, will follow up with her outpatient OB. -D/c in 1-[address] Canela - Attending Attestation The patient was seen and examined by me and I participated in all cash decision making. Continue routine care. Follow up hemoglobin due to hemorrhage. Bleeding stable and hemorrhage has resolved. SMS
[2018-04-09 10:27] LABS: Hematocrit 28.5 % (35.0-46.0); Hemoglobin 9.4 gm/dL (11.6-15.3); Mean Corpuscular HGB Conc 32.9 % (32.0-36.0); Mean Corpuscular Volume 84.9 fL (80.0-100.0); Mean Platelet Volume 7.3 fL (7.0-11.0); Platelet Count 318 th/mm3 (150-450); Red Blood Count 3.35 mil/mm3 (4.00-5.30); White Blood Count 8.1 th/mm3 (4.0-11.0)
[2018-04-09] MEDS: Acetaminophen 325 MG Tablet PO PRN (21:49)
[2018-04-10 01:21] VITALS: RESP 18
[2018-04-10] MEDS: Acetaminophen 325 MG Tablet PO PRN (06:24)
--- NOTE | 2018-04-10 08:35 | P.PNOB ---
Subjective Post day: 2 Interval history: day #2 AFVSS overnight. Decreased lochia. Denies dysuria. No breast tenderness. Appetite good. No nausea or vomiting. Positive flatus/bowel movement. Ambulating well. Denies calf pain or shortness of breath. Otherwise, she is doing well this morning and has no other complaints. Objective Vital Signs/I&O: Vital Signs 04/09/18 14:45 04/09/18 20:45 04/10/18 00:45 Temperature 98.0 F 98.3 F 98.2 F Pulse Rate 18 L 76 74 Respiratory Rate 18 16 18 Blood Pressure 141/91 H 146/68 H 152/83 H Result Diagrams: 04/09/18 10:00 04/07/18 22:44 Objective Remarks: GENERAL: Well-nourished, well-developed patient. CARDIOVASCULAR: Regular rate and rhythm without murmurs, gallops, or rubs. RESPIRATORY: Breath sounds equal bilaterally. No accessory muscle use. ABDOMEN/GI: Abdomen soft, non-tender. Fundus: Firm, non-tender at umbilicus. GENITOURINARY: Light to moderate bleeding. EXTREMITIES: No cyanosis or edema, non-tender, without signs of DVT. Medications and IVs: Active Medications Acetaminophen (Tylenol) 650 mg PO Q4H PRN PRN Reason: HEADACHE Last Admin: 04/10/18 06:24 Dose: 650 mg Al Hydroxide/Mg Hydroxide (Milk Of Magnesia Liq) 30 ml PO Q12H PRN PRN Reason: Mild Constipation Benzocaine (Americaine 20% Top [place]) 1 spray TOPICAL Q4H PRN PRN Reason: For Perineum Discomfort Last Admin: 04/09/18 08:52 Dose: 1 spray Bisacodyl (Dulcolax Supp) 10 mg RECTAL DAILY PRN PRN Reason: SEVERE CONSITIPATION Carboprost Tromethamine (Hemabate Inj) 250 mcg IM ONCE PRN PRN Reason: BLEEDING Citric Acid/Sodium Citrate (Sodium Citrate/Citric Acid Liq) 30 ml 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 [facility] Stop: 04/11/18 22:59 Ibuprofen (Motrin) 800 mg PO Q8H PRN PRN Reason: For cramping Lactulose (Lactulose Liq) 30 ml PO DAILY PRN PRN Reason: SEVERE CONSITIPATION Lidocaine HCl (Xylocaine 1% Inj) 0.1 ml I-DERMAL PRN PRN PRN Reason: For IV start Stop: 04/10/18 22:49 Mineral Oil (Muri-Lube Oil) 10 ml TOPICAL PRN PRN PRN Reason: PRN perineal massage Naloxone HCl (Narcan Inj) 0.1 mg IV.PUSH Q2M PRN PRN Reason: for opiate reversal Ondansetron HCl (Zofran Odt) 4 mg PO Q6H PRN PRN Reason: NAUSEA OR VOMITING Ondansetron HCl (Zofran Inj) 4 mg IV.PUSH Q6H PRN PRN Reason: VOMITTING/NAUSEA Last Admin: 04/08/18 20:53 Dose: 4 mg Oxycodone/Acetaminophen (Percocet 5/325 Mg) 1 tab PO Q4H PRN PRN Reason: PAIN SCALE 4 TO 6 MODERATE Oxycodone/Acetaminophen (Percocet 5/325 Mg) 2 tab PO Q4H PRN PRN Reason: PAIN SCALE 6 TO 10 Senna/Docusate Sodium (Sue-Colace) 1 tab PO BID [facility] Last Admin: 04/09/18 21:49 Dose: Not Given Sennosides (Senokot) 17.2 mg PO Q12H PRN PRN Reason: Moderate Constipation Sodium Chloride (Ns Flush) 2 ml IV.FLUSH BID [facility] Last Admin: 04/09/18 21:48 Dose: 2 ml Sodium Chloride (Ns Flush) 2 ml IV.FLUSH UNSCH PRN PRN Reason: FLUSH AFTER USING IV ACCESS [place]/Glycerin (Tucks Pads) 1 applicatio RECTAL QID PRN PRN Reason: HEMORRHOIDS Last Admin: 04/08/18 20:53 Dose: 1 applicatio Zolpidem Tartrate (Ambien) 5 mg PO HS PRN PRN Reason: SLEEP Assessment and Plan - Plan 17y/o female who is PPD#1 s/p . S/P hemorrhage. s/p Hemabate, TXA , cytotec -Bleeding has significantly improved -Continue routine care. -Motrin PRN pain. -Encouraged OOB. Advised pelvic rest for 6 wks. -Re: ctrl, she would like a Nexplanon, will follow up with her outpatient OB. -D/c likely today. [email or web address] Dr. Mott
[2018-04-10 09:20] VITALS: BP 153/83; PULSE 66
[2018-04-10 09:21] VITALS: TEMP 98
== END 2018-04-10 14:15 | disposition home or self-care (01) ==
LOC: HOBED 21:59 → H2E 23:02 → H1EA 04-08 12:38
PROVIDERS: ADMIT Obstetrics & Gynecology; ATTEND Obstetrics & Gynecology